=== PATIENT | female | born 1955 | race Caucasian/White ===

== ENCOUNTER → 2017-03-07 | Outpatient (CLI) | payer OTHER | LOC: MAMO 02-13 10:00 | DX: Z12.31 Encounter for screening mammogram for malignant neoplasm of breast (principal); Z78.0 Asymptomatic menopausal state | CPT/HCPCS: G0202 ==

== ENCOUNTER → 2021-01-16 | Outpatient (CLI) | payer MEDICARE ==
[~2021-01-16] MED LIST: ALBUTEROL2.5 MG/3 M INH; ARNUITY ELLIPT50 MCG INH; AUGMENTIN 875-1 EACH PO; BUDESONIDE-FO10.2 G1 INH; CALCIUM 500 MG1 EAC1 PO; CIPRO500 MG PO; COLACE100 MG PO; FLAGYL500 MG PO; HYDROXYZINE HCL10 MG PO; MOBIC15 MG PO; MYCOSTATIN100000 UTS PO; NEXIUM20 MG PO; ONDANSETRON ODT4 MG SL; PHENERGAN 12.12.5 M1 PO; PHENERGAN 12.12.5 MG PR; PRAVASTATIN SOD80 MG PO; PROBIOTIC1 EAC1 PO; SINGULAIR10 MG PO; SYMBICORT 16010.2 GM INH; TOPROL XL25 MG PO; TYLENOL 8 HOUR650 MG PO; VITAMIN D250 MCG PO
== END ==
LOC: MAMO 12-26 13:00
DX: Z12.31 Encounter for screening mammogram for malignant neoplasm of breast (principal); Z12.39 Encounter for other screening for malignant neoplasm of breast
CPT/HCPCS: 77063; 77067

== ENCOUNTER 2021-04-04 10:36 | Emergency (ER) | payer MEDICARE ==
[2021-04-04 12:05] LABS: HEMOGLOBIN 16.1 gm/dl (12.3-15.3); RED BLOOD COUNT 4.94 M/UL (4.00-5.10); WHITE BLOOD COUNT 10.5 K/UL (4.5-11.0)
[2021-04-04 12:36] LABS: BUN/CREATININE RATIO 28 (0-10)
[2021-04-04] MEDS ORDERED: MOBIC15 MG PO (15:00)
[2021-04-04] MEDS ORDERED: ONDANSETRON ODT4 MG SL (15:00)
[2021-04-04] MEDS ORDERED: COLACE100 MG PO (15:00)
[2021-04-04] MEDS ORDERED: FLAGYL500 MG PO (15:00)
[2021-04-04] MEDS ORDERED: CIPRO500 MG PO (15:00)
[2021-04-04] MEDS ORDERED: AUGMENTIN 875-1 EACH PO (15:16)
[2021-04-05] MEDS ORDERED: PHENERGAN 12.12.5 MG PR (20:58)
[2021-05-25] MEDS ORDERED: ALBUTEROL2.5 MG/3 M INH (06:54)
[2021-05-25] MEDS ORDERED: BUDESONIDE-FO10.2 G1 INH (06:55)
[2021-05-25] MEDS ORDERED: CALCIUM 500 MG1 EAC1 PO (06:55)
[2021-05-25] MEDS ORDERED: HYDROXYZINE HCL10 MG PO (06:56)
[2021-05-25] MEDS ORDERED: ARNUITY ELLIPT50 MCG INH (06:56)
[2021-05-25] MEDS ORDERED: TOPROL XL25 MG PO (06:57)
[2021-05-25] MEDS ORDERED: MYCOSTATIN100000 UTS PO (06:58)
[2021-05-25] MEDS ORDERED: SINGULAIR10 MG PO (06:58)
[2021-05-25] MEDS ORDERED: PRAVASTATIN SOD80 MG PO (06:59)
[2021-05-25] MEDS ORDERED: PHENERGAN 12.12.5 M1 PO (06:59)
[2021-05-25] MEDS ORDERED: SYMBICORT 16010.2 GM INH (07:00)
[2021-05-25] MEDS ORDERED: VITAMIN D250 MCG PO (07:00)
[2021-05-25] MEDS ORDERED: NEXIUM20 MG PO (07:01)
[2021-05-25] MEDS ORDERED: PROBIOTIC1 EAC1 PO (07:02)
[2021-05-25] MEDS ORDERED: TYLENOL 8 HOUR650 MG PO (07:02)
== END 2021-04-04 15:33 | disposition home or self-care (01) ==
LOC: ER1 10:36
PROVIDERS: Physician Assistant
DX: N39.0 Urinary tract infection, site not specified (principal); K57.32 Diverticulitis of large intestine without perforation or abscess without bleeding; Z20.822 Contact with and (suspected) exposure to COVID-19; K59.00 Constipation, unspecified; M48.56XA Collapsed vertebra, not elsewhere classified, lumbar region, initial encounter for fracture
CPT/HCPCS: 0240U; 71045; 80053; 81001; 83690; 85025; 87081; 87086; 87880; 96374; 96375; 99284; J1885; J2405; Q9967

== ENCOUNTER 2021-04-05 16:32 | Emergency (ER) | payer MEDICARE ==
[~2021-04-05 16:32] MED LIST changes: -ALBUTEROL2.5 MG/3 M INH; -ARNUITY ELLIPT50 MCG INH; -BUDESONIDE-FO10.2 G1 INH; -CALCIUM 500 MG1 EAC1 PO; -HYDROXYZINE HCL10 MG PO; -MYCOSTATIN100000 UTS PO; -NEXIUM20 MG PO; -PHENERGAN 12.12.5 M1 PO; -PHENERGAN 12.12.5 MG PR; -PRAVASTATIN SOD80 MG PO; -PROBIOTIC1 EAC1 PO; -SINGULAIR10 MG PO; -SYMBICORT 16010.2 GM INH; -TOPROL XL25 MG PO; -TYLENOL 8 HOUR650 MG PO; -VITAMIN D250 MCG PO
[2021-04-05 18:29] LABS: BUN/CREATININE RATIO 32 (0-10)
[2021-04-05 18:49] LABS: HEMOGLOBIN 16.8 gm/dl (12.3-15.3); RED BLOOD COUNT 5.11 M/UL (4.00-5.10); WHITE BLOOD COUNT 11.9 K/UL (4.5-11.0)
[2021-04-05] MEDS ORDERED: PHENERGAN 12.12.5 MG PR (20:58)
[2021-05-25] MEDS ORDERED: ALBUTEROL2.5 MG/3 M INH (06:54)
[2021-05-25] MEDS ORDERED: BUDESONIDE-FO10.2 G1 INH (06:55)
[2021-05-25] MEDS ORDERED: CALCIUM 500 MG1 EAC1 PO (06:55)
[2021-05-25] MEDS ORDERED: ARNUITY ELLIPT50 MCG INH (06:56)
[2021-05-25] MEDS ORDERED: HYDROXYZINE HCL10 MG PO (06:56)
[2021-05-25] MEDS ORDERED: TOPROL XL25 MG PO (06:57)
[2021-05-25] MEDS ORDERED: MYCOSTATIN100000 UTS PO (06:58)
[2021-05-25] MEDS ORDERED: SINGULAIR10 MG PO (06:58)
[2021-05-25] MEDS ORDERED: PHENERGAN 12.12.5 M1 PO (06:59)
[2021-05-25] MEDS ORDERED: PRAVASTATIN SOD80 MG PO (06:59)
[2021-05-25] MEDS ORDERED: VITAMIN D250 MCG PO (07:00)
[2021-05-25] MEDS ORDERED: SYMBICORT 16010.2 GM INH (07:00)
[2021-05-25] MEDS ORDERED: NEXIUM20 MG PO (07:01)
[2021-05-25] MEDS ORDERED: TYLENOL 8 HOUR650 MG PO (07:02)
[2021-05-25] MEDS ORDERED: PROBIOTIC1 EAC1 PO (07:02)
== END 2021-04-05 21:20 | disposition home or self-care (01) ==
LOC: ER1 16:32
PROVIDERS: Physician Assistant
DX: E86.0 Dehydration (principal); R11.2 Nausea with vomiting, unspecified; J44.9 Chronic obstructive pulmonary disease, unspecified; F17.200 Nicotine dependence, unspecified, uncomplicated
CPT/HCPCS: 80053; 81001; 82150; 83690; 85025; 87086; 96374; 96375; 99284; J1885; J2550; J7030

== ENCOUNTER → 2021-05-25 | Day surgery (SDC) | payer MEDICARE ==
[~2021-05-25] MED LIST changes: +ALBUTEROL2.5 MG/3 M INH; +ARNUITY ELLIPT50 MCG INH; +BUDESONIDE-FO10.2 G1 INH; +CALCIUM 500 MG1 EAC1 PO; +HYDROXYZINE HCL10 MG PO; +MYCOSTATIN100000 UTS PO; +NEXIUM20 MG PO; +PHENERGAN 12.12.5 M1 PO; +PHENERGAN 12.12.5 MG PR; +PRAVASTATIN SOD80 MG PO; +PROBIOTIC1 EAC1 PO; +SINGULAIR10 MG PO; +SYMBICORT 16010.2 GM INH; +TOPROL XL25 MG PO; +TYLENOL 8 HOUR650 MG PO; +VITAMIN D250 MCG PO
== END | disposition home or self-care (01) ==
LOC: OR 06:09
DX: K31.9 Disease of stomach and duodenum, unspecified (principal); K57.30 Diverticulosis of large intestine without perforation or abscess without bleeding; K29.70 Gastritis, unspecified, without bleeding; Q39.4 Esophageal web; K21.9 Gastro-esophageal reflux disease without esophagitis; M81.0 Age-related osteoporosis without current pathological fracture; F41.9 Anxiety disorder, unspecified; M54.9 Dorsalgia, unspecified; J44.9 Chronic obstructive pulmonary disease, unspecified; E78.00 Pure hypercholesterolemia, unspecified; I10 Essential (primary) hypertension; Z88.1 Allergy status to other antibiotic agents; Z98.51 Tubal ligation status; Z20.822 Contact with and (suspected) exposure to COVID-19
CPT/HCPCS: J2405; J2704; J7030

== ENCOUNTER → 2021-07-09 | Outpatient (CLI) | payer MEDICARE | LOC: EXRD 07:52 → NM 09:00 | DX: R10.9 Unspecified abdominal pain (principal); K76.89 Other specified diseases of liver; N28.1 Cyst of kidney, acquired | CPT/HCPCS: 76705; 78227; A9537 ==

== ENCOUNTER → 2022-06-12 | Outpatient (CLI) | payer MEDICARE | LOC: CT 12:19 | DX: R31.9 Hematuria, unspecified (principal); N28.1 Cyst of kidney, acquired; K76.89 Other specified diseases of liver | CPT/HCPCS: 36415; 74170; 82565; 84520; Q9967 ==

== ENCOUNTER → 2022-07-08 | Outpatient (CLI) | payer MEDICARE | LOC: MAMO 08:24 | DX: Z12.31 Encounter for screening mammogram for malignant neoplasm of breast (principal) | CPT/HCPCS: 77063; 77067 ==